=== PATIENT | male | born 1970 | race Caucasian/White ===

== ENCOUNTER 2017-12-12 14:47 | Emergency (ER) | payer SELFPAY ==
[~2017-12-12] VITALS: Ht 157.5 cm; Wt 68.0 kg
[2017-12-12 14:47] VITALS: BP_SYST 134
[2017-12-12] MEDS ORDERED: NACL 0.9% 1,000 ML IV ONE (15:02)
[2017-12-12 15:40] LABS: BILIRUBIN,URINE NEGATIVE (NEGATIVE); BLOOD, URINE 1+ (NEGATIVE); CLARITY/URINE CLEAR (CLEAR); COLOR,URINE YELLOW (YELLOW); GLUCOSE,URINE NEGATIVE (NEGATIVE); KETONES,URINE NEGATIVE (NEGATIVE); LEUKOCYTE ESTERASE ,URINE NEGATIVE (NEGATIVE); NITRITE, URINE NEGATIVE (NEGATIVE); PH,URINE 5.5 (5.0-8.0); PROTEIN URINE NEGATIVE (NEGATIVE); UROBILINOGEN,URINE 0.2 (0.2-1.0)
[2017-12-12 15:45] LABS: BACTERIA,URINE FEW /HPF (None Seen); BASOPHILS % (AUTO) 0.4 % (0.0-2.0); EOSINOPHILS % (AUTO) 0.3 % (0.0-4.0); HEMOGLOBIN 15.9 g/dL (14.0-18.0); LYMPHOCYTES # (AUTO) 1.3 K/uL (1.0-5.5); LYMPHOCYTES % (AUTO) 12.5 % (20.5-51.5); MEAN CORPUSCULAR HEMOGLOBIN 30 pg (27-31); MEAN CORPUSCULAR HGB CONC 34 % (32-36); MEAN CORPUSCULAR VOLUME 88 fL (79.0-98.0); MONOCYTES # (AUTO) 0.5 K/uL (0.0-1.0); MONOCYTES % (AUTO) 4.9 % (1.7-9.3); NEUTROPHILS # (AUTO) 8.3 K/uL (1.8-7.7); NEUTROPHILS % (AUTO) 81.9 % (40.0-70.0); PLATELET COUNT (AUTO) 361 K/uL (130-430); RBC,URINE 0-3 /HPF (0-3); RED BLOOD CELL COUNT(AUTO) 5.36 MIL/uL (4.2-6.2); RED CELL DISTRIBUTION WIDTH 12.7 % (9.0-15.0); WBC,URINE 0-3 /HPF (0-3); WHITE BLOOD COUNT (AUTO) 10.1 K/uL (4.8-10.8)
[2017-12-12 15:55] LABS: CALCIUM 8.7 mg/dL (8.4-11.0); CREATININE 0.69 mg/dL (0.55-1.30); POTASSIUM 3.5 mmol/L (3.5-5.1)
[2017-12-12 15:59] LABS: ALBUMIN 4.2 g/dL (3.4-4.8); TOTAL BILIRUBIN 0.3 mg/dL (0.0-1.0)
[2017-12-12 16:25] VITALS: BP_SYST 132
== END 2017-12-12 16:25 | disposition home or self-care (01) ==
LOC: SED 14:47
DX: N40.1 Benign prostatic hyperplasia with lower urinary tract symptoms (principal); R33.8 Other retention of urine; E11.9 Type 2 diabetes mellitus without complications; F17.200 Nicotine dependence, unspecified, uncomplicated; R03.0 Elevated blood-pressure reading, without diagnosis of hypertension
CPT/HCPCS: 36415; 51702; 80053; 81000; 82150; 83690; 85025; 99284; J7030

== ENCOUNTER 2019-09-04 20:05 | Emergency (ER) | payer MEDICAID ==
[~2019-09-04] VITALS: Ht 160 cm; Wt 68.0 kg
[2019-09-04 20:44] VITALS: BP_SYST 126
--- NOTE | 2019-09-04 20:51 | NUR ---
Patient triaged and placed in waiting room. VSS and patient appears in no acute distress at this time. Accompanied by family, awaiting available bed, and MD notified of need for MSE. Provided with urine cup for urine sample collection
[2019-09-04 21:49] LABS: BILIRUBIN,URINE NEGATIVE (NEGATIVE); BLOOD, URINE NEGATIVE (NEGATIVE); CLARITY/URINE CLEAR (CLEAR); COLOR,URINE YELLOW (YELLOW); GLUCOSE,URINE NEGATIVE (NEGATIVE); KETONES,URINE NEGATIVE (NEGATIVE); LEUKOCYTE ESTERASE ,URINE NEGATIVE (NEGATIVE); NITRITE, URINE NEGATIVE (NEGATIVE); PROTEIN URINE NEGATIVE (NEGATIVE); UROBILINOGEN,URINE 0.2 (0.2-1.0)
--- NOTE | 2019-09-05 00:59 | NUR ---
Pt ambulatory to bed 3 for evaluation
--- NOTE | 2019-09-05 01:00 | NUR ---
Pt brought in by sister. Pt is awake, alert, oriented x4. Pt states that he has had difficulty voiding lately. Pt states that he has to take extended times to urinate a small amount with periodic dribbling from penis before and after urination. Pt states he has been told he has BPH in the past, but currently does not take treatment or medication for it. Pt denies chest pain, nausea, vomiting, diarrhea, shortness of breath. Pt denies any other medical complaint at this time. Resting comfortably in ED bed. No acute distress.
--- NOTE | 2019-09-05 01:15 | NUR ---
ER at bedside examining patient.
[2019-09-05] MEDS ORDERED: NACL 0.9% 1,000 ML IV ONE (02:00)
--- NOTE | 2019-09-05 03:00 | NUR ---
Pt taken to Radiology via nissa
--- NOTE | 2019-09-05 03:14 | NUR ---
Returned from radiology, back to [facility].
--- NOTE | 2019-09-05 04:30 | NUR ---
Per 's order and patient request. # 18 FR diaz catheter with use of sterile technique. Immediate return of 250 ml straw urine noted. Leg bag attached to Diaz, secured in place with leg straps and statloc to patients preference. Pt tolerated procedure well.
[2019-09-05 05:00] VITALS: BP_SYST 118
[2019-09-05] MEDS ORDERED: MAGNESIUM CITRATE 300 ML ORAL SOLUTION PO ONE (05:00)
--- NOTE | 2019-09-05 05:00 | NUR ---
Patient given written and verbal discharge instructions and verbalizes understanding. ER MD discussed with patient the results and treatment provided. Patient in stable condition. ID arm band removed. IV catheter removed intact and dressing applied, no active bleeding. No RX given. Patient educated on pain management and to follow up with PMD. Pain Scale 0/10. Opportunity for questions provided and answered.
== END 2019-09-05 05:00 | disposition home or self-care (01) ==
LOC: SED 20:05
DX: N40.0 Benign prostatic hyperplasia without lower urinary tract symptoms (principal)
CPT/HCPCS: 51702; 74176; 81003; 99284; J7030

== ENCOUNTER 2019-09-10 17:48 | Emergency (ER) | payer MEDICAID ==
[~2019-09-10] VITALS: Ht 160 cm; Wt 68.0 kg
[2019-09-10 18:05] VITALS: BP_SYST 149
--- NOTE | 2019-09-10 19:54 | NUR ---
Patient to ER bed 6 to gown for evaluation. Side rails up. Report given to TEENA Gray.
--- NOTE | 2019-09-10 20:24 | NUR ---
Pt AAOx4, new zealander speaking only, c/o blood in diaz bag today. Diaz was placed on Thursday due to difficulty urinating. Per son at bedside, pt requires surgery due to enlarged prostate. Will continue to monitor.
--- NOTE | 2019-09-10 20:40 | NUR ---
ER Dr. Muir at bedside examining patient.
--- NOTE | 2019-09-10 21:23 | NUR ---
Patient given written and verbal discharge instructions and verbalizes understanding. ER MD Muir discussed with patient the results and treatment provided. Patient in stable condition. ID arm band removed. No Rx given. Patient educated on pain management and to follow up with PMD. Pain Scale 0. Opportunity for questions provided and answered. Medication side effect fact sheet provided.
[2019-09-10 21:24] VITALS: BP_SYST 138
== END 2019-09-10 21:23 | disposition home or self-care (01) ==
LOC: SED 17:48
DX: N40.0 Benign prostatic hyperplasia without lower urinary tract symptoms (principal); Z85.46 Personal history of malignant neoplasm of prostate
CPT/HCPCS: 99281